=== PATIENT | male | born 1940 | race Caucasian/White ===

== ENCOUNTER 2020-08-27 07:18 | Day surgery (SDC) | payer OTHER ==
[2020-08-26 09:45] VITALS: BMI 27.8
[2020-08-27] MEDS ORDERED: PROPOFOL 20 ML ONE (09:22)
[2020-08-27] MEDS ORDERED: Lidocaine 1% PF 5 ML VIAL ONE (09:22)
[2020-08-27] MEDS ORDERED: Lidocaine 1% MPF 2 ML VIAL ONE (09:23)
[2020-08-27 12:53] LABS: SARS-CoV-2 NAA Rapid Test Not Detected (NotDetected)
== END 2020-08-27 13:05 | disposition home or self-care (01) ==
LOC: CSHSDC 07:18
PROVIDERS: ATTEND Internal Medicine Gastroenterology
PROC: 0D758ZZ Dilation of Esophagus, Via Natural or Artificial Opening Endoscopic (ICD-10-PCS; principal; 2020-08-27)
DX: B37.81 Candidal esophagitis (principal); K29.30 Chronic superficial gastritis without bleeding; K31.7 Polyp of stomach and duodenum; R63.4 Abnormal weight loss
CPT/HCPCS: 36415; 36416; 70491; 71260; 82565; 88305; 88312; 88313; 88342; J2704; U0002